=== PATIENT | male | born 1975 | race Two or more races ===

== ENCOUNTER 2017-01-11 19:13 | Emergency (ER) | payer BC ==
[2017-01-11 19:21] VITALS: BP 128/79
[2017-01-11] MEDS ORDERED: Ibuprofen TAB* 400 MG PO ONE (19:37)
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
--- NOTE | 2017-01-11 20:14 | RAD ---
Indication: Lateral LEFT ankle pain and swelling following injury. Comparison: None. Technique: AP, mortise, and lateral views LEFT ankle. Report: Soft tissue swelling over the lateral malleolus without fracture or malalignment. No conspicuous foreign body evident. IMPRESSION: Lateral soft tissue swelling without additional finding.
== END 2017-01-11 20:34 | disposition home or self-care (01) ==
LOC: ED 19:13
DX: S90.02XA Contusion of left ankle, initial encounter (principal); W20.8XXA Other cause of strike by thrown, projected or falling object, initial encounter; Y93.H2 Activity, gardening and landscaping; Y92.9 Unspecified place or not applicable
CPT/HCPCS: 99282; A9270-GY